=== PATIENT | female | born 1990 | race Two or more races ===

== ENCOUNTER 2017-04-24 08:00 | Inpatient (IN) | payer SELFPAY ==
[~2017-04-24] VITALS: Ht 170.2 cm; Wt 100.1 kg
[2017-04-24 08:54] VITALS: Ht 170.2 cm; Wt 100.1 kg
[2017-04-24] MEDS ORDERED: LIDOCAINE 1% (MPF) 30 ML INJ INJ PRN (09:00)
[2017-04-24] MEDS ORDERED: METHYLERGONOVINE 0.2 MG INJ IM PRN (09:00)
[2017-04-24] MEDS ORDERED: CARBOPROST 250 MCG INJ IM PRN (09:00)
[2017-04-24] MEDS ORDERED: MISOPROSTOL 200 MCG TAB PR PRN (09:00)
[2017-04-24] MEDS ORDERED: OXYTOCIN 30 UNITS/LR 500 ML IV SCH ×3 (09:00→14:00)
[2017-04-24] MEDS ORDERED: BUTORPHANOL 2 MG INJ IV PRN (09:00)
[2017-04-24] MEDS ORDERED: IBUPROFEN 600 MG TAB PO PRN (09:00)
[2017-04-24] MEDS ORDERED: OXYTOCIN 30 UNITS/LR 500 ML IV PRN (09:00)
[2017-04-24] MEDS: LACTATED RINGER'S 1,000 ML IV SCH ×5 (10:00→23:21)
[2017-04-24 10:12] LABS: BASOPHILS % 0.1 % (0.0-2.0); EOSINOPHILS % 0.3 % (0.0-7.0); HEMATOCRIT 32.2 % (37.0-47.0); HEMOGLOBIN 10.9 g/dl (12.0-16.0); LYMPHOCYTES # 1.7 10^3/ul (0.8-2.9); LYMPHOCYTES % 22.4 % (15.0-51.0); MEAN CORPUSCULAR HEMOGLOBIN 28.7 pg (29.0-33.0); MEAN CORPUSCULAR HGB CONC 33.9 g/dl (32.0-37.0); MEAN CORPUSCULAR VOLUME 84.7 fl (82.0-101.0); MEAN PLATELET VOLUME 12.4 fl (7.4-10.4); MONOCYTE # 0.6 10^3/ul (0.3-0.9); NEUTROPHIL # 5.2 10^3/ul (1.6-7.5); NEUTROPHILS % 67.8 % (39.0-77.0); PLATELET COUNT 128 10^3/UL (140-415); RED CELL DISTRIBUTION WIDTH 14.3 % (11.5-14.5); WHITE BLOOD COUNT 7.7 10^3/ul (4.8-10.8)
[2017-04-24] MEDS ORDERED: AMPICILLIN 2 GM/NS (PMX) 100 ML IVPB ONE (10:30)
[2017-04-24 10:31] LABS: INR 0.91; PARTIAL THROMBOPLASTIN TIME 25.5 Sec (25.0-35.0); PROTIME 12.3 Sec (11.9-14.9)
[2017-04-24] MEDS: AMPICILLIN 1 GM/NS (PMX) 50 ML IVPB SCH ×3 (14:46→22:17)
[2017-04-24 16:59] LABS: BARBITURATES Negative (NEGATIVE); BENZODIAZEPINES Negative (NEGATIVE); CANNABINOIDS Negative (NEGATIVE); COCAINE Negative (NEGATIVE); OPIATES Negative (NEGATIVE)
[2017-04-24] MEDS ORDERED: SODIUM CHLORIDE 0.9% 1L IRRIG IRR PRN (19:30)
[2017-04-24] MEDS ORDERED: FENTAnyl 2MCG/ML-ROPIV 0.2% 100 ML ONE (20:40)
[2017-04-24] MEDS ORDERED: ONDANSETRON 4 MG INJ IV PRN (22:00)
[2017-04-24] MEDS ORDERED: NALOXONE (0.4 MG/ML) INJ IV PRN (22:00)
[2017-04-24] MEDS ORDERED: FENTAnyl 2MCG/ML-ROPIV 0.2% 100 ML BAG EPI SCH (22:00)
[2017-04-24] MEDS ORDERED: DIPHENHYDRAMINE 50 MG INJ IV PRN (22:00)
[2017-04-25] MEDS: LACTATED RINGER'S 1,000 ML IV* SCH ×3 (01:47→17:35)
[2017-04-25] MEDS ORDERED: OXYTOCIN 30 UNITS/LR 500 ML IV SCH (01:47)
--- NOTE | 2017-04-25 01:53 | LDN ---
Date/Time of Note Date/Time of Note DATE: 04/25/17 TIME: 01:51 Delivery Summary of a viable baby girl weighing 2660 grams, or 5# 14 oz, 19" long, and with Apgars of 8/9. Weeks of Gestation 39w 1d Placenta Delivered: Spontaneously Meconium: none Episiotomy: No Perineal laceration: 0 Anesthesia type: Epidural Estimated blood loss: 150 Sponge & Needle done & correct: Yes All needle counts correct: Yes Any foreign bodies felt in the: No (vagina) Problems: Delivery Information Sex Sex: female Apgars 1 Minute: 8 5 Minute: 9 Suctioning Nose & mouth suctioned at dinh: No Delee suction performed: No Umbilical Cord Umbilical cord with: 3 Vessels Cord presentations: no nuchal cord Cord Blood was obtained: Yes Mother & Baby Disposition Disposition Mom & Baby to Maternity; Good: Yes Baby to NICU: No LIZ JEAN MD Apr 25, 2017 01:53
--- NOTE | 2017-04-25 01:58 | HP ---
Date/Time of Note Date/Time of Note DATE: 04/25/17 TIME: 01:53 OB - History Hx of Present Free Text/Dictation 26 y.o. with an IUP at 39 weeks on admission here for induction. Pt is from [place] and is here to have her baby. Last Menstrual Period: Jul 25, 2016 Estimated Due Date: May 01, 2017 : 4 Para: 3 Care: Good Care Ultrasounds: Normal mid trimester US Obstetrical Complications: None Medical Complications: None Past Family/Social History * Past Medical, Surgical, Family and Obstetric Histories reviewed from chart. Blood Type: O+ Rubella: immune RPR/VDRL: Negative GBS Status: Positive HBsAG: Negative OB Admission Exam Vital Signs Vital Signs BP 105/59 T=97.8 Physical Exam HEENT: WNL Heart: Rhythm Normal Lungs: Clear Abdomen: WNL Extremities: Edema (1-2+) Reflexes: Normal Cervical Dilatation: 3cm Effacement: Other (60%) Station: -3 Membranes: Intact Amniotic Fluid: Clear Heart Rate: 130's Accelerations: Accelerations Present Decelerations: Variable Decelerations Varibility: Moderate Contractions on Admission: 6-10 Minutes Apart Last 72 hours Lab Results CBC & BMP 04/24/17 09:50 OB Assessment/Plan Reason for admission: induction of labor Other Assessment: GBS positive. For a tubal ligation. Plan: Induction Induction Method: per Pitocin Protocol Other plan: tubal. LIZ JEAN MD Apr 25, 2017 01:58
[2017-04-25] MEDS ORDERED: HYDROCODONE/APAP (5/325) TAB PO PRN (02:00)
[2017-04-25] MEDS ORDERED: LANOLIN 7 GM TUBE TOP PRN (02:00)
[2017-04-25] MEDS ORDERED: METHYLERGONOVINE 0.2 MG INJ IM PRN (02:00)
[2017-04-25] MEDS ORDERED: CARBOPROST 250 MCG INJ IM PRN (02:00)
[2017-04-25] MEDS ORDERED: MISOPROSTOL 200 MCG TAB PR PRN (02:00)
[2017-04-25] MEDS ORDERED: OXYTOCIN 30 UNITS/LR 500 ML IV PRN (02:00)
[2017-04-25 05:10] VITALS: BP 102/67; RESP 20
[2017-04-25] MEDS: IBUPROFEN 600 MG TAB PO SCH ×4 (06:00→23:42)
[2017-04-25 08:00] VITALS: BP 104/67; PULSE 71; RESP 18
[2017-04-25 12:00] VITALS: BP 110/70; PULSE 70; RESP 16
[2017-04-25] MEDS ORDERED: KETOROLAC 30 MG INJ IV PRN (14:00)
[2017-04-25 16:04] VITALS: BP 100/71; PULSE 72; RESP 17
[2017-04-25 20:00] VITALS: BP 104/70; PULSE 76; RESP 18
[2017-04-26 05:18] VITALS: BP 103/69; PULSE 77; RESP 18
[2017-04-26] MEDS: LACTATED RINGER'S 1,000 ML IV* SCH (05:32)
[2017-04-26] MEDS: IBUPROFEN 600 MG TAB PO SCH ×2 (05:58→12:22)
[2017-04-26 07:30] VITALS: BP 111/73; PULSE 78; RESP 20
--- NOTE | 2017-04-26 08:05 | PD.PPDC ---
HEARING THERAPIST Discharge Instruction Condition Patient Condition: Good Diet Diet: Resume Regular Diet Activity/Restrictions Activity: Normal Activity May Shower Restrictions: No Sexual Activity Nothing in the Vagina No [place] No Tampons, douche Follow-up Follow-up with Physician: 6, Week/Weeks Return to clinic for [employer] Instructions: Fever greater than 101 Chills Worsening abdominal pain Excessive Vaginal Bleeding OB Instructions: Breast Tenderness Depression LIZ JEAN MD Apr 26, 2017 08:05
--- NOTE | 2017-04-26 08:07 | DS ---
Date/Time of Note Date/Time of Note DATE: 04/26/17 TIME: 08:06 Obstetrical Discharge Record Final Diagnosis Final Diagnosis: Term delivered Vaginal Delivery Obstetrical Delivery: Spontaneous Complications Induction: Yes Condition on Discharge Physical Assessment Last Vitals: 98.3 111/73 Voiding: Yes Bowel Movement: Yes Breast: Soft, non-tender Fundus: Firm Calf Tenderness: No Patient Condition: Good LIZ JEAN MD Apr 26, 2017 08:07
[2017-04-26] MEDS ORDERED: DIPHTH/TET/ACEL PERTUSS (ADULT) 0.5 ML VIAL IM* ONE (10:00)
[2017-04-26 10:39] LABS: BASOPHILS % 0.4 % (0.0-2.0); EOSINOPHILS % 0.5 % (0.0-7.0); HEMOGLOBIN 11.6 g/dl (12.0-16.0); LYMPHOCYTES # 2.5 10^3/ul (0.8-2.9); LYMPHOCYTES % 28.7 % (15.0-51.0); MEAN CORPUSCULAR HEMOGLOBIN 28.4 pg (29.0-33.0); MEAN CORPUSCULAR HGB CONC 33.1 g/dl (32.0-37.0); MEAN CORPUSCULAR VOLUME 85.8 fl (82.0-101.0); MEAN PLATELET VOLUME 12.3 fl (7.4-10.4); MONOCYTE # 0.4 10^3/ul (0.3-0.9); MONOCYTES % 4.9 % (0.0-11.0); NEUTROPHIL # 5.5 10^3/ul (1.6-7.5); NEUTROPHILS % 64.6 % (39.0-77.0); PLATELET COUNT 141 10^3/UL (140-415); RED BLOOD COUNT 4.08 10^6/ul (4.20-5.40); RED CELL DISTRIBUTION WIDTH 14.1 % (11.5-14.5); WHITE BLOOD COUNT 8.6 10^3/ul (4.8-10.8)
[2017-04-26 11:30] VITALS: BP 110/72; PULSE 78; RESP 18
[2017-04-27] MEDS ORDERED: DIPHTH/TET/ACEL PERTUSS (ADULT) 0.5 ML VIAL IM* ONE (09:00)
== END 2017-04-26 14:57 | disposition home or self-care (01) | DRG 775 ==
LOC: L-D 08:39 → PP1 04-25 05:03
PROVIDERS: ADMIT Obstetrics & Gynecology; ATTEND Obstetrics & Gynecology
PROC: 3E033VJ Introduction of Other Hormone into Peripheral Vein, Percutaneous Approach (ICD-10-PCS; 2017-04-24)
PROC: 10E0XZZ Delivery of Products of Conception, External Approach (ICD-10-PCS; principal; 2017-04-24 08:00)
DX: O80 Encounter for full-term uncomplicated delivery (principal); Z37.0 Single live birth; Z3A.39 39 weeks gestation of pregnancy
CPT/HCPCS: 62319; 80307; 85025; 85610; 85730; 86592; 86900; 86901; 90715; J0290; J1885; J2590; J3010; J7120